=== PATIENT | female | born 1975 | race Caucasian/White ===

== ENCOUNTER 2023-09-16 14:04 | Inpatient (IN) | payer MEDICARE, MEDICAID ==
[2023-09-16] MEDS ORDERED: Morphine 4 MG/ML VIAL ONE (14:25)
[2023-09-16 14:54] LABS: #Basophils 0.05 10x3/uL (0.0-0.2); #Eosinphils 0.01 10x3/uL (0.0-0.5); #Monocytes 0.81 10x3/uL (0.0-1.1); #Neutrophils 7.43 10x3/uL (1.5-8.4); %Basophils 0.5 % (0.0-2.0); %Eosinophils 0.1 % (0.0-6.0); %Lymphocytes 17.7 % (18.0-47.0); %Neutrophils 73.4 % (40.0-75.0); Hematocrit 29.2 % (34.9-44.5); Hemoglobin 9.8 g/dL (12.0-15.5); Mean Corpuscular HGB CONC 33.6 g/dL (32.0-36.0); Mean Corpuscular Hemoglobin 30.1 pg (27.0-33.0); Mean Corpuscular Volume 89.6 fL (81.6-98.3); Mean Platelet Volume 9.2 fL (7.4-10.4); Platelet Count 418 10x3/uL (150-450); RBC Distribution Width 18.7 % (11.5-14.5); Red Blood Cell (RBC) Count 3.26 10x6/uL (3.90-5.03); White Blood Cell (WBC) Count 10.1 10x3/uL (3.5-10.5)
[2023-09-16 15:11] LABS: ALT (SGPT) Less than 7 U/L (8-55); AST (SGOT) 8 U/L (5-34); Albumin 2.7 g/dL (3.5-5.0); Alkaline Phosphatase 54 U/L (40-110); Anion Gap 15 mmol/L (10-20); BUN (Urea Nitrogen) 8 mg/dL (7.0-18.7); Bilirubin, Total 0.4 mg/dL (0.2-1.2); Calc. Creatinine Clearance 0 mL/min (70-130); Calcium 8.9 mg/dL (7.8-10.44); Carbon Dioxide 24 mmol/L (22-29); Chloride 105 mmol/L (98-107); Estimated GFR 109; Glucose 100 mg/dL (70-105); Potassium 3.5 mmol/L (3.5-5.1); Protein, Total 6.7 g/dL (6.0-8.3); Sodium 140 mmol/L (136-145)
[2023-09-16] MEDS ORDERED: Calcium Carbonate 500 MG ChewTAB PO PRN (19:25)
[2023-09-16] MEDS ORDERED: Zolpidem Tartrate 5 MG TAB PO PRN (19:25)
[2023-09-16] MEDS ORDERED: Guaifenesin DM 100-10/5 ML UDCUP PO PRN (19:25)
[2023-09-16] MEDS ORDERED: Ondansetron PF 4 MG/2 ML Vial IVP PRN (19:25)
[2023-09-16] MEDS ORDERED: Albuterol 2.5 MG (3 mL) NEB NEB PRN (19:49)
[2023-09-16] MEDS: tiZANidine HCl 4 MG TAB PO SCH (21:43)
[2023-09-16] MEDS: traZODone HCl 50 MG TAB PO SCH (21:44)
[2023-09-16] MEDS: Gabapentin 400 MG CAP PO SCH (21:44)
[2023-09-16] MEDS: Divalproex Sodium 500 MG ER.TAB PO SCH (21:44)
[2023-09-16] MEDS: Nicotine 14 MG PATCH TD SCH (21:45)
[2023-09-16] MEDS: Morphine 2 MG/ML VIAL SLOW IVP PRN (22:15)
[2023-09-17 01:09] LABS: Bilirubin Neg (Negative); Blood, Urine 25 (Negative); Clarity Clear (Clear); Glucose, Urine (Dipstick) Normal (Negative); Ketone, Urine Negative (Negative); Leukocyte Negative (Negative); Nitrite Negative (Negative); Protein, Urine (Dipstick) 15 mg/dl (Neg-Trace); Specific Gravity, Urine 1.005 (1.005-1.030)
[2023-09-17 01:13] LABS: Pregnancy Test - Urine (BHCG) Negative (Negative); Pregu Control Background? CLEAR/WHITE (CLR/WHITE); Pregu Control Bar Appear? YES (CONTROL BAR); Specific Gravity 1.005 (1.002-1.036)
[2023-09-17 01:22] LABS: Bacteria/HPF None Seen HPF (None Seen); RBC/HPF 0-3 HPF (0-3); Squamous Epithelial 0-3 HPF (0-3); Triple Phosphate Crystal 1+ HPF (None Seen); WBC/HPF 0-3 HPF (0-3)
[2023-09-17 05:20] LABS: #Basophils 0.03 10x3/uL (0.0-0.2); #Eosinphils 0.11 10x3/uL (0.0-0.5); #Neutrophils 4.47 10x3/uL (1.5-8.4); %Basophils 0.4 % (0.0-2.0); %Eosinophils 1.4 % (0.0-6.0); %Lymphocytes 32.7 % (18.0-47.0); %Monocytes 8.8 % (0.0-10.0); %Neutrophils 56.3 % (40.0-75.0); Hematocrit 26.8 % (34.9-44.5); Hemoglobin 8.9 g/dL (12.0-15.5); Mean Corpuscular HGB CONC 33.2 g/dL (32.0-36.0); Mean Corpuscular Volume 90.2 fL (81.6-98.3); Mean Platelet Volume 9.2 fL (7.4-10.4); Platelet Count 358 10x3/uL (150-450); RBC Distribution Width 18.9 % (11.5-14.5); Red Blood Cell (RBC) Count 2.97 10x6/uL (3.90-5.03); White Blood Cell (WBC) Count 7.9 10x3/uL (3.5-10.5)
[2023-09-17 05:52] VITALS: BMI 39.3
[2023-09-17] MEDS: oxyCODONE 5 MG TAB PO PRN (09:32)
[2023-09-17] MEDS: Acetaminophen 325 MG TAB PO PRN (09:32)
[2023-09-17] MEDS: Multivitamin W/ Minerals 1 TAB PO SCH (09:37)
[2023-09-17] MEDS: Dicyclomine 10 MG CAP PO SCH (09:37)
[2023-09-17] MEDS: Pantoprazole DR 40 MG TAB PO SCH (09:37)
[2023-09-17] MEDS: Escitalopram Oxalate 10 mg Tablet PO SCH (09:37)
[2023-09-17] MEDS: Enoxaparin 40 MG (0.4 mL) SYRINGE SC SCH (09:38)
[2023-09-17] MEDS: Oxybutynin ER 5 MG TAB PO SCH (09:39)
[2023-09-17 10:10] VITALS: BMI 39.3
[2023-09-17] MEDS: Triple Antibiotic Ointment 30 GM TUBE TOP SCH (17:31)
[2023-09-17] MEDS: Ketorolac Tromethamine 30 MG (1 mL) VIAL IVP PRN (20:05)
[2023-09-18] MEDS: Lidocaine 2% 6 ML (Jelly) SYR TOP PRN (12:01)
[2023-09-19] MEDS: ALPRAZolam 1 MG TAB PO PRN (22:08)
[2023-09-20] MEDS: Ibuprofen 200 MG TAB PO PRN (10:18)
[2023-09-20] MEDS: Sodium Chloride 0.9% 1,000 ML IV SCH (14:30)
[2023-09-21] MEDS: Ketorolac Tromethamine 30 MG (1 mL) VIAL IVP PRN (18:52)
[2023-09-22 04:01] LABS: Hematocrit 30.1 % (34.9-44.5); Hemoglobin 9.5 g/dL (12.0-15.5)
[2023-09-22] MEDS ORDERED: Sodium Chloride 0.65% Nasal 44 ML BOT EA NARE PRN (07:43)
[2023-09-22] MEDS ORDERED: Lactulose 20 GM (30 mL) UDCUP PO PRN (07:43)
[2023-09-22] MEDS ORDERED: Loratadine 10 MG TAB PO PRN (07:43)
[2023-09-22] MEDS ORDERED: GUAIFENESIN SF SOLN 200 MG/10 ML UDCUP PO PRN (07:43)
[2023-09-22] MEDS ORDERED: Artificial Tear Ophth Sol 15 ML BOT EA EYE PRN (07:43)
[2023-09-22] MEDS ORDERED: Moisturizing Cream (Eucerin) 113 GM JAR TOP PRN (07:43)
[2023-09-22] MEDS ORDERED: Bisacodyl 10 MG SUPP PR PRN (07:43)
[2023-09-22] MEDS: Senokot S 8.6-50 MG TAB PO PRN (10:59)
[2023-09-22] MEDS ORDERED: Iopamidol 300 61% 100 ML VIAL FS ONE (12:34)
[2023-09-22] MEDS: ALPRAZolam 1 MG TAB PO PRN (12:53)
[2023-09-23 12:42] VITALS: BP 113/76; TEMP 97.7
== END 2023-09-23 14:30 | DRG 948 ==
LOC: CSHERS 14:04 → INTOOBSV 17:24 → CSHTELE 17:24 → OBSVTOIN 09-18 09:37
PROVIDERS: ADMIT Family Medicine; ATTEND Family Medicine
DX: G89.18 Other acute postprocedural pain (principal); G82.22 Paraplegia, incomplete; N13.30 Unspecified hydronephrosis; G82.21 Paraplegia, complete; D64.9 Anemia, unspecified; G89.4 Chronic pain syndrome; K59.00 Constipation, unspecified; L89.321 Pressure ulcer of left buttock, stage 1; L89.311 Pressure ulcer of right buttock, stage 1; M43.16 Spondylolisthesis, lumbar region; F41.9 Anxiety disorder, unspecified; F31.9 Bipolar disorder, unspecified; E11.40 Type 2 diabetes mellitus with diabetic neuropathy, unspecified; Z99.3 Dependence on wheelchair
CPT/HCPCS: 36415; 36416; 74177; 80053; 81001; 81025; 83605; 85014; 85018; 85025; 93970; 96374; 97139; J1650; J1885; J2270; J2272; J7050; Q9967